=== PATIENT | female | born 2000 | race Caucasian/White ===

== ENCOUNTER 2021-11-26 17:01 | Emergency (ER) | payer OTHER ==
[~2021-11-26 17:01] MED LIST: BENTYL 10MG CAP10 MG PO; BENTYL 20MG TAB20 MG PO; CARAFATE1 GM PO; CETIRIZINE-PSE1 EACH PO; CLEOCIN HCL300 MG PO; COLACE 100MG C100 MG PO; DEPO-PROVE150 MG/1 M IM; DEPO-PROVE150 MG/11 IM; DIFLUCAN150 MG PO; EPINEPHRINE IM; FLONASE 0.05% N16 GM; FLUCONAZOLE150 MG PO; MEDROL DOSEPAK 24 MG PO; MEDROL4 MG PO; NIKKI 3 MG-0.01 EACH PO; NORCO 5-325 TA1 EACH PO; OMEPRAZOLE20 M2 PO; OMEPRAZOLE20 MG PO; PERCOCET 5-3251 EACH PO; PHENERGAN 25 MG25 M1 PO; PREDNISONE 50 M50 MG PO; PRILOSEC OTC20 MG PO; PROMETHAZINE HC25 M1 PO; PROTONIX 20 MG20 MG PO; PROTONIX40 MG PO; RANITIDINE HCL150 M1 PO; RANITIDINE HCL300 MG PO; REGLAN10 MG PO; SINGULAIR10 MG PO; SUDAFED 60 MG T60 MG PO; TYLENOL 325MG325 MG PO; TYLENOL 500 MG500 MG PO; VENTOLIN HFA 66.7 GM INH; ZANTAC 150 MG150 MG PO; ZANTAC150 MG PO; ZOFRAN ODT 4 MG4 MG SL; ZOFRAN4 MG PO; ZYRTEC-D TABLE1 EACH PO; ZYRTEC10 M2 PO; ZYRTEC10 M3 PO; ZYRTEC10 MG PO
== END 2021-11-26 20:00 | disposition left against medical advice (07) ==
LOC: ER1 17:01
DX: Z53.21 Procedure and treatment not carried out due to patient leaving prior to being seen by health care provider (principal)